=== PATIENT | male | born 1960 | race Caucasian/White ===

== ENCOUNTER → 2020-05-18 07:58 | Outpatient (CLI) | payer OTHER, SELFPAY ==
[2020-05-18 23:26] LABS: SARS-CoV-2 RNA PCR Negative
== END ==
PROVIDERS: PCP Family Medicine; Visit Provider Family Medicine
DX: Z20.822 Contact with and (suspected) exposure to COVID-19 (principal); R19.7 Diarrhea, unspecified; R50.9 Fever, unspecified
CPT/HCPCS: C9803; U0003; U0005

== ENCOUNTER 2023-06-13 09:14 | Outpatient (CLI) | payer OTHER, SELFPAY ==
--- NOTE | ~2023-06-13 | US_ITS ---
EXAMINATION: US aorta [facility] DATE: 06/13/2023 15:22 CDT INDICATION: Screening for abdominal aortic aneurysm. Obesity. High cholesterol. TECHNIQUE: Grayscale, color Doppler, and pulsed Doppler images of the aorta and common iliac arteries were obtained. COMPARISON: None. FINDINGS: The proximal aorta measures 2.8 cm greatest sagittal dimension. The mid aorta measures 2.5 cm greates t sagittal dimension. The distal aorta measures 2.1 cm greatest sagittal dimension. The right common internal iliac artery measures 13 mm. The left common iliac artery measures 12 mm. IMPRESSION: 1. Normal caliber aorta without aneurysm. Reviewed, dictated and finalized at location B.
== END 2023-06-13 09:15 | disposition home or self-care (01) ==
PROVIDERS: PCP Family Medicine; Visit Provider Family Medicine
DX: Z13.6 Encounter for screening for cardiovascular disorders (principal)
CPT/HCPCS: 76706

== ENCOUNTER 2023-08-15 21:07 | Emergency (ER) | payer OTHER, SELFPAY ==
[2023-08-15 21:17] VITALS: BP 140/80; PULSE 70; RESP 16; TEMP 36.6; O2SAT 98
--- NOTE | 2023-08-15 23:25 | ED.GENADULT ---
HPI - General Adult General Chief complaint: Extremity Injury, Lower Stated complaint: foot injury Time Seen by Provider: 08/15/23 22:28 History of Present Illness HPI narrative: patient is 63-year-old gentleman who presents emergency department chief complaint laceration left great toe. The patient reports that he had a 10 of blood scalp popcorn fell off the shelf and landed on his toe. The patient reports there is a superficial laceration that he cannot get stop bleeding initially but has stopped bleeding in a patient reports there is about 0.5 cm laceration that gapes open the patient has previously had his toenails removed due to abnormalities of his head Related Data Home Medications Medication Instructions Recorded Confirmed cholecalciferol (vitamin D3) 25 25 mcg PO DAILY 04/09/19 05/28/23 mcg (1,000 unit) tablet flaxseed oil 1,000 mg capsule 1,000 mg PO DAILY 04/09/19 05/28/23 mirabegron 25 mg tablet,extended 25 mg PO DAILY 04/09/19 05/28/23 release 24 hr (Myrbetriq) czyuixit-lh-csioq 300 mcg-K 60 1 tablet PO DAILY 04/09/19 05/28/23 mcg-lycop 600 mcg-lutein 300 mcg tablet (Centrum Silver Men) naproxen 250 mg tablet 250 mg PO BID PRN 04/09/19 05/28/23 omega-3 fatty acids 1,000 mg 1,000 mg PO DAILY 04/09/19 05/28/23 capsule (Fish Oil Concentrate) sildenafil (pulm.hypertension) 20 20 mg PO DAILY 04/09/19 05/28/23 mg tablet Allergies Allergy/AdvReac Type Severity Reaction Status Date / Time codeine Allergy Unknown Hives Verified 08/15/23 21:15 Review of Systems Review of Systems: A 10 system review of systems was completed on the patient and is negative except for what is stated in the HPI. Nursing and ancillary documentation was reviewed. [facility] Past Medical History Medical History Allergic rhinitis BPH (benign prostatic hyperplasia) Chronic GERD Depression Esophageal web Hiatal hernia IFG (impaired fasting glucose) Low testosterone Vitamin D deficiency Family History Family History Father Family history of coronary artery disease Social History Social History Smoking status: Never smoker Tobacco type: pipe and cigars Second hand tobacco smoke exposure: No Smoking end date: 03/17/96 Alcohol intake: current Substance use: never Substance use type: does not use Living arrangements: with family Occupation/Education: occupation Gender identity (if verbalized by the patient): Male Exam Narrative: GENERAL: Well-appearing, well-nourished, and in no acute distress. HEAD: Normocephalic, atraumatic. EYES: PERRLA and EOMI. ENT: Nares clear, no rhinorrhea or epistaxis. Mucous membranes moist. NECK: Supple. CHEST: Clear to auscultation. No respiratory distress. HEART: Regular rate and rhythm. No murmur heard. Normal peripheral pulses. ABDOMEN: Soft, nontender, nondistended, normal active bowel sounds. EXTREMITIES: Normal range of motion. No edema. 0.5 cm laceration to the tip of the left great toe SKIN: Warm, dry, no rash. NEURO: No focal deficits. Alert and oriented x3. PSYCH: Normal mood and affect. Course Vital Signs Vital signs: Vital Signs Temperature 36.6 C 08/15/23 21:17 Pulse Rate 70 08/15/23 21:17 Respiratory Rate 16 08/15/23 21:17 Blood Pressure 140/80 08/15/23 21:17 Pulse Oximetry 98 08/15/23 21:17 Temperature 36.6 C 08/15/23 21:17 Pulse Rate 70 08/15/23 21:17 Respiratory Rate 16 08/15/23 21:17 Blood Pressure 140/80 08/15/23 21:17 Pulse Oximetry 98 08/15/23 21:17 Procedures Laceration Laceration 1: Date: 08/15/23 Time: 23:27 Site: lower extremity ( left great toe) Side (If applicable): left Size (cm): 0.5 Description: linear Depth: simple, single layer L
[2023-08-15 23:38] VITALS: BP 126/68; PULSE 68; RESP 18; O2SAT 98
== END 2023-08-15 23:39 | disposition home or self-care (01) ==
PROVIDERS: Emergency Provider Emergency Medicine; PCP Family Medicine
DX: S91.112A Laceration without foreign body of left great toe without damage to nail, initial encounter (principal); W20.8XXA Other cause of strike by thrown, projected or falling object, initial encounter; N40.0 Benign prostatic hyperplasia without lower urinary tract symptoms; K21.9 Gastro-esophageal reflux disease without esophagitis; E55.9 Vitamin D deficiency, unspecified; F32.A Depression, unspecified
CPT/HCPCS: 12001; 99282

== ENCOUNTER 2024-05-21 08:52 | Outpatient (CLI) | payer MEDICARE, SELFPAY ==
--- OUTSIDE RECORDS SUMMARY | 2024-05-21 09:17 | XMS_ITS | Encounter Summary ---
Author Organization [facility] Address [address] [place] [address] Care Team Providers Care Die Engraving Supervisor Name Role Phone Adán Kyle MD Primary Care Provider [phone] Reason for Visit * Physical Therapy (Routine) - Authorized Specialty Diagnoses / Procedures Referred By Aster partida Referred To Contact [facility] Physical Therapy Diagnoses Male erectile dysfunction, unspecified Urgency of urination Mai Arteaga NP Phone: tel: fax: [facility] [place] [address] Phone: tel: fax: Referral ID Status Reason Start Date Expiration Date V isits Requested Visits Authorized [id number] Authorized 05/07/2024 10 10 Encounter Details Date Type Department Care Team (Late st Contact Info) Description 05/19/2024 12:20 PM ORGANIC EXTRACTIONS TECHNICIAN - 05/19/2024 11:59 PM [facility] Hospital Encounter [facility] [place] [address] Mai Arteaga NP [address] [place] [address] Char Craig DPT [address] [place] [address] Discharge Disposition: Home or Self Care (Routine Discharge) Social History Tobacco Use Types Packs/Day Years Used Date Smoking Tobacco: Never Assessed Sex and Gender Information Value Date Recorded Sex Assigned at Male 05/07/2024 8:50 AM ORGANIC EXTRACTIONS TECHNICIAN Legal Sex Male 8:45 AM ORGANIC EXTRACTIONS TECHNICIAN Gender Identity Not on file Sexual Orientation Not on file documented as of this encounter Progress Notes * Char Craig DPT - 05/19/2024 1:00 PM CSTSummary: Pelvic Floor PT Initial Evaluation Physical Therapy Pelvic Floor Evaluation Date: 05/19/2024 Patient Name: Kadeem Givens : 1960 Diagnosis: SNOMED CT(R) 1. Urinary urgency URGENT DESIRE TO URINATE 2. Urge incontinence URGE INCONTINENCE OF URINE 3. Straining to void MUST STRAIN TO PASS URINE 4. Diastasis recti DIASTASIS RECTI 5. Pelvic floor dysfunction PELVIC FLOOR DYSFUNCTION Referring Provider: .Mai Arteaga NP PT Orders: Evaluate and treat urinary urgency and UUI Insurance: [facility] Insurance approval/visit limit:follows [facility] Guidelines Start time: 1:00 PM End time 2:15 PM SUBJECTIVE: See Screening Questionnaire. Medical History: see attachments in media No past medical history on file. No past surgical history on file. No current outpatient medications on file. Medications: Mirabegron = sold under the brand name Myrbetriq Allergies: see attachments in media Current symptoms: urinary urgency with UUI and post-void dribble, JED Occupation: retired industrial electrician journeyman Pain Rating: denies pain Outcome Measure: NIH-CPSI: Pain: 0 Urinary: 3 QOL: 9 Patient Goals: lessen frequent and urgent urination Bladder Summary: Fluid Intake: Water: 2 bottles of 12 ounces Coffee: 1 cup of decaf per day Tea: 2 cups decaf per day Alcohol: social intake - couple beers every now and then or whiskey and water - s/s a lot worse when drinking these Milk: glass in AM and glass at supper - each 12 ounces Other: cut out monster Daytime Urinary Frequency: 8-10 - can go 1 hour between pees Feels that urine leaks into the urethra and then creates pressure and urge to go Stream: normal Prostate exam every 10 years - last one in 2019 and no abdnormalities notes Feeling of Incomplete Empty: no Pain with Urination/Dysuria: no Back to Back Attempts: yes - with shower Washing dishes The shower No s/s after going pee and washing hands Urinary Urges or Urgency: yes Things that have helped: Mirabegron, sold under the brand name Myrbetriq (been taking for 10 years)- started with 25 mg and after a few years went up to 50mg, decreasing coffee and caffeine intake since care home Triggers for UUI: walking in/out of the cold running water - hear shower and then instantly need to pee even if just went pee Working in yard and urge starts and then walking to toilet and then unzipping pants and starts to dribble Change positions: sit to stand and then a couple minutes after start walking then urge occurs and increases Ability to Hold/Delay Urge: sometimes less and sometimes more Straining to empty: pushing naturally but not straining per his report When checked with palpation tensing and activating TrA when standing and simulating urination Nocturia: 0-1 - most nights 0 Stops drinking after 8PM, goes to bed around 9:30-10PM Wakes up at 5PM Urinary Leakages: yes Type: UUI Triggers for UUI: walking in/out of the cold running water - hear shower and then instantly need to pee even if just went pee Working in yard and urge starts and then walking to toilet and then unzipping pants and starts to dribble Change positions: sit to stand and then a couple minutes after start walking then urge occurs and increases Amount: dribble but can be more and this is when he is trying to dumont to bathroom and tries to holdit but cannot Post-Micturition Dribble: yes - 33-50% of the time Pad Usage:light duty mens depends - lasts all day; nothing at night and no UI at night; heavy duty mens depends if going somewhere new Toileting Position: standing to void Bowel Summary: Bowel Movement (BM) Frequency: 3 per day IBS triggered with stress - does not feel IBS and bladder have a big connection Food triggers unknown because there are some times where in non-stressful situation and has a flare BM Consistency (Hickman Stool Type): Type 4 Has this changes recently, if so what was is before: with IBS flare 6-7 BM Urges or Urgency: no unless IBS flare Feeling of Incomplete Empty: no Straining to Empty: no Pain with BM: no Bleeding with BM: with internal hemmhroid in the pastand not present at this time Fecal Incontinence: no - only if IBS severe flare Pain/Sexual Health: Pain in pelvic floor: none OBJECTIVE: Informed consent for evaluation/internal exam received. Vitals: Blood Pressure: 144/66 mmHg Heart Rate: 57 bpm [id number]: 96 % Diastasis Recti: 3 Fingers Above Umbilicus 10 finger at rest At Umbilicus 10 finger at rest 3 Fingers Below Umbilicus 10 finger at rest Breath Assessment: Patient exhibits apical breathing pattern with poor rib excursion and increased chest rise. With instruction in diaphragmatic breathing patient demonstrates improved lower abdomen expansion with goodlateral rib cage expansion. TREATMENT TODAY: Evaluation and Self Care . Self Care: Minutes: 15 Education: Patient was educated on factors from subjective influencing pelvic floor tension and how pelvic floor tension and activation during voiding can lead to possible incomplete bladder emptying, post-voiddribble, and increased urgency and UUI. Patient was educated on synergistic relationship between diaphragm and PFM and how breath can influence PFM resting position and help improve his bladder s/s and decrease felling of needing to push to pee. Patient was educated on dysfunctional voiding pattern with pushing and how this can be reason for post-void dribble, incomplete emptying, and urgency. Patient was educated on use of diaphragmatic breathing during voiding to help eliminate pushing to pee. Patient was educated on bladder irritants and how these can influence urine concentration, bladder irritation, urgency, and UUI - handout provided. Patient was instructed on use of and given bladder diary to track his current habits related to bladder function and intake. Patient given urinal to collect and measure urine output more accurately. Patient was educated on log rolling for transitions from supine <>sitting to decrease strain on abdomen and noted JED. Education on future focus on PT to help with pressure management and core recruitment with all transitions needed to help improve core strength and decrease stress and strain on PFM to help with bladder s/s. Home Exercise Program: Bladder dairy with list of bladder irritants, male urine dust collector attendant to use for precise measuring of output Timed Code Tx Minutes (Total Treatment Code Minutes): 15 Units: 1 Total Tx Time(Total Time with Patient): 75 15 Self Care and 60 High Eval ASSESSMENT: Patient is a 64 year old male with history of urgency, urinary frequency, incontinence, poor trunk stability, excessive irritant intake, and altered urination habits with pushing to pee leading to post-void dribble. Patient presents with altered emptying habits with urination, significant JED altered abdominal support of viscera abd pressure management throughout thoracic and pelvic cavities, andupper chest breathing. Patient will benefit from skilled PT for above deficits to improve his bladder health and function and resolve all UI to improve perineal hygiene for improved QOL. Patient willalso benefit on focus on core strength and movement training as it relates to noted JED as this can affect his pressure management system that can play a role in urinary urgency and UI. REHAB POTENTIAL: good THERAPY GOALS: (to be met upon discharge) Patient will: SHORT TERM GOALS: to be met in 8 visits Patient will complete bladder dairy, understand results, and implement behavioral changes based on diary to help improve bladder health and function. Patient will decrease intake of bladder irritant of 1 cup total of either decaf coffee or tea to help improve bladder function. Patient will improve fluid intake of water to 40-60 ounces to improve toileting and improve symptommanagement. Exhibit good knowledge of pelvic anatomy and healthy bowel/ bladder habits/self- help awareness. Exhibit improved emptying strategies with bladder with no pushing to pee noted to improve emptying and help resolve post pee dribble. Exhibit good knowledge of proper voiding schedule to improve continence and urgency based on intake. Be IND with urinary urge suppression techniques to help delay urge and improve urge related urinaryincontinence for improved control over bladder. Patient will demonstrated IND with diaphragmatic breathing to improve PFM resting tone and decreaselikelihood of PFM contributing to urgency and UUI. WELL LOGGING OPERATOR MUD ANALYSIS GOALS: to be met by discharge Decrease urinary incontinence episodes to less than 1 per day to improve ability to improve perineal hygiene. Patient will decrease daily toileting frequency to every 2-4 hours on average to improve socialization and daily activities with his family (valentín when playing with grandchildren). Be able to delay urgency by 5-10 minutes to improve toileting function and socialization. Demonstrate an increase in PFM contraction to normal or improved to 4/5 with normal relaxation postcontraction along with good quick coordination of 5-10 contractions in 10 seconds of less to demonstrate good endurance and coordination of PFM to use with various functional tasks to eliminate UI. Patient will demonstrate IND with log rolling and basic pressure management mechanics with all transitional activities to decrease doming with JED. Patient be IND with core HEP focused on decreased intra-recti distance over time to help with abdominal visceral and pelvic organ support. Patient will be able to perform individualized home exercise program for independent symptom management and have integrated them into their lifestyle. ASSESSMENT EVALUATION COMPLEXITY Personal Factor/Co-morbidities: 3 or more (High) Prolonged use of medication without resolution of s/s, BMI, Chronicity Examination of Body Systems Needing Addressed: Bowel/Bladder Function; 4 or more (High) PFM Deficits, Bed Mobility Deficits, Muscle Tension, Self Care Deficits, Trunk Deficits Clinical Presentation of Patient: Unstable (High) Unpredictable and unstable characteristics - Incontinence Clinical Decision Making: High TREATMENT PLAN: Frequency: 1 times per week to every other week for 30-75 minutes for 16 visits. Patient to be seen for: Self Care, Neuro Re-ed, Therapeutic Activities, Therapeutic Exercises, Manual therapy Next visit: Review bladder diary and educate on lifestyle modifications - focus on decreasing irritants and increasing water; look at PFM with external/internal/sEMG exam to determine readiness for urge suppression techniques; add basic core (PFM/TrA/breath) to be used to transition - look at floortransfer and help patient with this and note JED during; f/u on post-void dribble changes and breathing to void consistency; f/u on use of pause and breath to see if any initial changes with urgency and UUI Therapist: Char Craig DPT Date: 05/19/24 Time: 2:29 PM Physician certification: I certify that the above physical therapy services are required, authorized, and reviewed. Provider Signature: Date: Time: Patient Name: Kadeem Givens : 1960 NIC EXTRACTIONS TECHNICIAN documented in this encounter Plan of Treatment Upcoming Encounters Date Type Department Care Team (Late st Contact Info) Description 05/28/2024 2:15 PM CDT Appointment [facility] [place] [address] Mai Arteaga, CHARISMA [address] [place] [address] Char Craig DPT [address] [place] [address] 06/04/2024 1:00 PM CDT Appointment [facility] [place] [address] Mai Arteaga, MERCURY CELL CLEANER [address] [place] [address] Char Craig DPT [address] [place] [address] 06/11/2024 1:00 PM CDT Appointment [facility] [place] [place] [address] Char Craig DPT [address] [place] [address] Mai Arteaga, MERCURY CELL CLEANER [address] [place] [address] 06/22/2024 1:00 PM CDT Appointment [facility] [place] [address] Char Craig DPT [address] [place] [address] Mai Arteaga, MERCURY CELL CLEANER [address] [place] [address] documented as of this encounter Visit Diagnoses Diagnosis Urinary urgency- Primary Urgency of urination Urge incontinence Straining to void Straining on urination Diastasis recti Diastasis of muscle Pelvic floor dysfunction Pelvic muscle wasting documented in this encounter Care Teams Die Engraving Supervisor Relationship Specialty Start Date End Date Adán Kyle MD [address] [place] [address] PCP - General FAMILY PRACTICE 05/07/24 documented as of this encounter
--- OUTSIDE RECORDS SUMMARY | 2024-05-21 09:17 | XMS_ITS | Clinical Summary ---
Author Organization [facility] Address [address] [place] [address] Care Team Providers Care Cigar Packer And Picker Name Role Phone Adán Kyle MD Primary Care Provider [phone] Encounters Date Type Department Care Team Description 05/19/2024 12:20 PM VICE PRESIDENT OF CONSULTING SERVICES - 05/19/2024 11:59 PM VICE PRESIDENT OF CONSULTING SERVICES Hospital Encounter [facility] [address] Mai Arteaga NP Ratermann, Madeline R, DPT Discharge Disposition: Home or Self Care (Routine Discharge) 05/19/2024 Travel from Last 3 Months Social History Tobacco Use Types Packs/Day Years Used Date Smoking Tobacco: Never Assessed Sex and Gender Information Value Date Recorded Sex Assigned at Male 05/07/2024 8:50 AM VICE PRESIDENT OF CONSULTING SERVICES Legal Sex Male 8:45 AM VICE PRESIDENT OF CONSULTING SERVICES Gender Identity Not on file Sexual Orientation Not on file Plan of Treatment Upcoming Encounters Date Type Department Care Team (Late st Contact Info) Description 05/28/2024 2:15 PM CDT Appointment [facility] [address] Mai Arteaga, PREVENTIVE MAINTENANCE COORDINATOR [address] [place], [place] [id number] Char Craig DPT [address] [place] [address] 06/04/2024 1:00 PM CDT Appointment [facility] [place] [address] Mai Arteaga, PREVENTIVE MAINTENANCE COORDINATOR [address] [place], [place] [id number] Char Craig, DPT [address] [place] [address] 06/11/2024 1:[address] [facility] [place] [address] Char Craig DPT [address] [place] [address] Mai Arteaga, PREVENTIVE MAINTENANCE COORDINATOR [address] [place] [address] 06/22/2024 1:00 PM CDT Appointment [facility] [place] [address] Char Craig, DPT [address] [place] [address] Mai Arteaga, PREVENTIVE MAINTENANCE COORDINATOR [address] [place] [address] Health Maintenance Due Date Last Done Comments Colorectal Cancer Screening Colonoscopy (10 Years) 1960 Hepatitis C 1976 DTaP, Tdap and Td Vaccines ( 1 - Tdap) 1977 COVID-19 Vaccine ( - 2023-2 5 season) 2023 03/02/2021, 06/06/2020, 05/03/2020 Zoster Vaccines (3 of 3) 04/18/2024 024, 04/09/2016 RSV Immunization or 60+ Years (1 - 1-dose 75+ series) 2033 Influenza Adult Completed 02/22/2024 Pneumococcal Vaccine: 65+ Years Completed 02/22/2024 Meningococcal B Vaccine Aged Out No l onger eligible based on patient's age to complete this topic Meningococcal Vaccine Aged Out No keyur noa eligible based on patient's age to complete this topic RSV Immunizations Under 20 Months Aged Out No longer eligible b ased on patient's age to complete this topic Insurance [employer] Care Teams Cigar Packer And Picker Relationship Specialty Start Date End Date Adán Klye MD [address] [place] [address] PCP - General FAMILY PRACTICE 05/07/24
[2024-05-21 09:21] LABS: Hematocrit 48.4 % (42.0-52.0); Hemoglobin 16.2 g/dL (14.0-18.0); Mean Corpuscular HGB Conc 33.5 g/dl (32-36); Mean Corpuscular Hemoglobin 32.7 pg (26-34); Mean Corpuscular Volume 97.6 fl (80-100); Mean Platelet Volume 9.7 fl (7.4-10.4); Platelet Count Result 212 k/mm3 (150-375); Red Blood Count 4.96 M/mm3 (4.6-6.20); Red Cell Distribution Width 12.8 % (11.5-14.5); White Blood Count 5.7 K/mm3 (4.5-10.0)
[2024-05-21 09:22] LABS: Add Urine Microscopic? NO; Appearance Urine Clear (Clear); Bilirubin Urine Negative (Negative); Blood Urine Negative (Negative); Color Urine Yellow (Yellow); Glucose Urine UA Negative (Negative); Ketones Urine Negative (Negative); Leukocyte Esterase Ur Negative LEU/UL (Negative); Nitrate Urine Negative (Negative); Protein Urine Negative (Negative); Specific Grav Ur 1.016 (1.001-1.035); Urobilinogen Urine 0.2 mg/dL (<2.0)
[2024-05-21 09:32] LABS: Alanine Aminotransferase 35 U/L (6-50); Albumin Level 4.4 g/dL (3.5-5.1); Alkaline Phosphatase 65 U/L (38-126); Anion Gap 7 mmol/L (4-12); Aspartate Amino Transferase 28 U/L (17-59); Bilirubin,Total 0.9 mg/dL (0.2-1.3); Blood Urea Nitrogen 20 mg/dL (9-20); Calcium 8.9 mg/dL (8.4-10.2); Carbon Dioxide 27 mmol/L (22-30); Chloride 106 mmol/L (98-107); Cholesterol 232 mg/dL (0-200); Estimated Glomerular Filt Rate > 60; Glucose 105 mg/dL (65-110); HDL Direct 44 mg/dL; Potassium 4.6 mmol/L (3.4-5.0); Sodium 140 mmol/L (137-145); Triglycerides 160 mg/dL (<150)
[2024-05-21 09:43] LABS: LDL Cholesterol Direct 150 mg/dL
[2024-05-21 10:03] LABS: Prostate Specific Antigen 1.2 ng/mL (< OR = 4.0)
[2024-05-21 10:28] LABS: Hemoglobin A1C 5.2 % (<5.7)
== END 2024-05-21 08:53 | disposition home or self-care (01) ==
PROVIDERS: PCP Family Medicine; Visit Provider Family Medicine
DX: N40.0 Benign prostatic hyperplasia without lower urinary tract symptoms (principal); R53.83 Other fatigue; E78.2 Mixed hyperlipidemia; Z00.00 Encounter for general adult medical examination without abnormal findings; R73.01 Impaired fasting glucose; E55.9 Vitamin D deficiency, unspecified; R79.89 Other specified abnormal findings of blood chemistry; Z12.5 Encounter for screening for malignant neoplasm of prostate
CPT/HCPCS: 36415; 80053; 80061; 81003; 82306; 83036; 84153; 84402; 84403; 84443; 85027; G0103

== ENCOUNTER 2025-02-16 09:19 | Outpatient (CLI) | payer MEDICARE, SELFPAY ==
--- NOTE | ~2025-02-16 | CT_ITS ---
EXAMINATION: CT abdomen pelvis wo/w con DATE: 02/16/2025 10:50 INDICATION: Gross hematuria. TECHNIQUE: Computed tomography (CT) of the abdomen and pelvis was performed without and with intravenous contrast using a total of 130 mL Omnipaque-350 intravenous contrast with a double-bolus technique for simultaneous opacification of the renal parenchyma and renal collecting system. Automated exposure control and iterative reconstruction technique were employed. The dose- length product was 2335.68 mGy-cm. COMPARISON: CT abdomen and pelvis 08/17/2015 FINDINGS: The visualized portions of the lung bases demonstrate mild atelectasis. No pleural effusion. The heart size is normal. No pericardial effusion. There is diffuse hepatic steatosis. Calcifications in the spleen are consistent with old granulomatous disease. The gallbladder, pancreas, adrenal glands, and right kidney are normal. There is a 2 mm stone in left kidney. There is a 6 mm stone in distal right ureter. There is right hydroureter. The ureters are well opacified by contrast. The bladder is normal. The prostate is mildly enlarged. There are no dilated loops of bowel. The appendix is normal. There are no pathologically enlarged lymph nodes. There is no free intraperitoneal fluid. There is severe lumbar spondylosis. There is a hemangioma in L2 vertebral body. There is severe thoracic spondylosis. IMPRESSION: 1. 6 mm stone in distal right ureter. Right hydroureter. 2. 2 mm nonobstructing left kidney stone. Reviewed, dictated and finalized at location E. [employer]
[2025-02-16 10:02] LABS: Estimated Glomerular Filt Rate > 60
--- OUTSIDE RECORDS SUMMARY | 2025-02-16 10:09 | XMS_ITS | Clinical Summary ---
Author Organization [facility] Address [address] [place] [address] Care Team Providers Care Roller Structural Mill Name Role Phone Adán Kyle MD Primary Care Provider [phone] Social History Tobacco Use Types Packs/Day Years Used Date Smoking Tobacco: Never Assessed Sex and Gender Information Value Date Recorded Sex Assigned at Male 05/07/2024 8:50 AM METAL TESTER Legal Sex Male 8:45 AM METAL TESTER Gender Identity Not on file Sexual Orientation Not on file Plan of Treatment Health Maintenance Due Date Last Done Comments Colorectal Cancer Screening Colonoscopy (10 Years) 1960 Hepatitis C 1976 DTaP, Tdap and Td Vaccines ( 1 - Tdap) 1977 Zoster Vaccines (3 of 3) 04/18/2024 024, 04/09/2016 COVID-19 Vaccine (4 - 2024-2 6 season) 2024 03/02/2021, 06/06/2020, 05/03/2020 Influenza Adult (#1) 2024 02/22/2024 RSV Immunization or 60+ Years (1 - 1-dose 75+ series) 2033 Pneumococcal Vaccine: 50+ Years Completed 02/22/2024 Hepatitis A Vaccines Aged Out No long er eligible based on patient's age to complete this topic Meningococcal B Vaccine Aged Out No l onger eligible based on patient's age to complete this topic Meningococcal Vaccine Aged Out No keyur noa eligible based on patient's age to complete this topic RSV Immunizations Under 20 Months Aged Out No longer eligible b ased on patient's age to complete this topic Insurance [address] [place] [address] [employer] Care Teams Roller Structural Mill Relationship Specialty Start Date End Date Adán Kyle MD [address] [place] [address] PCP - General FAMILY PRACTICE 05/07/24
== END 2025-02-16 09:20 | disposition home or self-care (01) ==
PROVIDERS: PCP Family Medicine; Visit Provider Nurse Practitioner Family
DX: R31.0 Gross hematuria (principal); N20.2 Calculus of kidney with calculus of ureter
CPT/HCPCS: 74178; Q9967